=== PATIENT | female | born 1980 | race Caucasian/White ===

== ENCOUNTER → 2020-03-28 07:55 | Outpatient (CLI) | payer OTHER, SELFPAY ==
--- NOTE | ~2020-03-28 | MM_ITS ---
EXAMINATION: MM screening jo BI w jessica HISTORY: Screening mammogram TECHNIQUE: Craniocaudal and mediolateral oblique 3-D tomosynthesis images were obtained and synthetic 2-D images were generated. CAD analysis was submitted and interpreted. COMPARISON: 09/17/2019 diagnostic right mammogram and limited right breast ultrasound 03/16/2019 bilateral digital screening mammogram 03/16/2019 limited right breast ultrasound 09/18/2018 limited right breast ultrasound 03/21/2018 diagnostic right digital mammogram and limited right breast ultrasound BREAST PARENCHYMAL COMPOSITION: The breasts are extremely dense, which lowers the sensitivity of mamm ography. FINDINGS: There is no evidence of suspicious mass, calcification, or architectural distortion to sugg est malignancy in either breast. There has been no suspicious interval change. IMPRESSION: 1. No mammographic evidence of malignancy. 2. Recommend routine screening mammography in one year. BI-RADS Category 1: Negative Reviewed, dictated and finalized at location A.
== END ==
PROVIDERS: Visit Provider Nurse Practitioner
DX: Z12.31 Encounter for screening mammogram for malignant neoplasm of breast (principal)
CPT/HCPCS: 77063; 77067

== ENCOUNTER → 2021-05-27 15:53 | Outpatient (CLI) | payer OTHER, SELFPAY ==
--- NOTE | ~2021-05-27 | MM_ITS ---
EXAMINATION: MM screening jo BI w jessica HISTORY: Screening TECHNIQUE: Craniocaudal and mediolateral oblique 3-D tomosynthesis images were obtained and synthetic 2-D images were generated. CAD analysis was submitted and interpreted. COMPARISON: Comparison to multiple prior studies sequentially, with oldest reviewed study dated 03/13. BREAST PARENCHYMAL COMPOSITION: The breasts are extremely dense, which lowers the sensitivity of mamm ography FINDINGS: There is no evidence of suspicious mass, calcification, or architectural distortion to sugg est malignancy in either breast. There has been no suspicious interval change. IMPRESSION: 1. No mammographic evidence of malignancy. 2. Recommend routine screening mammography in one year. BI-RADS Category 1: Negative Reviewed, dictated and finalized at location A.
== END ==
PROVIDERS: Visit Provider Nurse Practitioner
DX: Z12.31 Encounter for screening mammogram for malignant neoplasm of breast (principal)
CPT/HCPCS: 77063; 77067

== ENCOUNTER → 2022-08-11 15:41 | Outpatient (CLI) | payer OTHER, SELFPAY ==
--- NOTE | ~2022-08-11 | MM_ITS ---
EXAMINATION: MM screening jo BI w jessica HISTORY: Screening TECHNIQUE: Craniocaudal and mediolateral oblique 3-D tomosynthesis images were obtained and synthetic 2-D images were generated. CAD analysis was submitted and interpreted. COMPARISON: Comparison to multiple prior studies sequentially, with oldest reviewed study dated 03/16. BREAST PARENCHYMAL COMPOSITION: The breasts are heterogeneously dense, which may obscure small masses . FINDINGS: There are possible masses in the upper outer quadrant of the right breast posteriorly. The left breast is stable without evidence for malignancy. IMPRESSION: 1. Possible obscured masses in the upper outer quadrant of the right breast posteriorly. 2. Additional mammographic views and possible breast ultrasound are recommended. BI-RADS Category 0: Incomplete: Needs additional imaging evaluation. Reviewed, dictated and finalized at location B. 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 Possible obscured masses in the upper outer quadrant of the right breast pos teriorly. 2. Additional mammographic views and possible breast ultrasound are recommended . BI-RADS Category 0: Incomplete: Needs additional imaging evaluation.
== END ==
PROVIDERS: PCP Family Medicine; Visit Provider Obstetrics & Gynecology Gynecology
DX: Z12.31 Encounter for screening mammogram for malignant neoplasm of breast (principal); R92.8 Other abnormal and inconclusive findings on diagnostic imaging of breast
CPT/HCPCS: 77063; 77067

== ENCOUNTER → 2022-09-13 09:13 | Outpatient (CLI) | payer OTHER, SELFPAY ==
--- NOTE | ~2022-09-13 | MMUS_ITS ---
EXAMINATION: MM diagnostic jo RT w jessica, US breast RT complete HISTORY: Possible obscured masses in upper outer quadrant of right breast posteriorly on screening ma mmogram of 08/11/2022 TECHNIQUE: Additional 3-D tomosynthesis images of the right breast were performed and synthetic 2-D i mages were generated. CAD analysis was submitted and interpreted. High resolution complete right [address] [facility] ultrasound including all 4 quadrants and subareolar area was performed. COMPARISON: 08/11/2022 bilateral screening mammogram BREAST PARENCHYMAL COMPOSITION: The breasts are heterogeneously dense, which may obscure small masses . FINDINGS: MAMMOGRAPHIC FINDINGS: No definite mass or architectural distortion is evident. The dense heterogeneous stroma may obscure m asses anywhere in the right breast. There are scattered punctate benign microcalcifications of the right breast. No malignant calcificati on is evident. No skin thickening or retraction. ULTRASOUND: There are multiple scattered circumscribed sonolucent and hypoechoic circular or parasellar lesions i n the right breast, the largest measuring up to 12 mm maximal dimension at 12:00 6 cm from the nipple . None of these has internal vascularity and none shows posterior shadowing. IMPRESSION: 1. Probable benign findings 2. 6 month diagnostic right mammogram and right breast ultrasound follow-up are recommended BI-RADS category 3, probably benign findings. Reviewed, dictated and finalized at location B. 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 Probable benign findings 2. 6 month diagnostic right mammogram and right breast ultrasound follow-up are recommended BI-RADS category 3, probably benign findings.
== END ==
PROVIDERS: PCP Family Medicine; Visit Provider Obstetrics & Gynecology Gynecology
DX: R92.8 Other abnormal and inconclusive findings on diagnostic imaging of breast (principal)
CPT/HCPCS: 76641; 77061; 77065; G0279

== ENCOUNTER → 2023-05-24 14:14 | Outpatient (CLI) | payer OTHER, SELFPAY ==
--- NOTE | ~2023-05-24 | MMUS_ITS ---
EXAMINATION: MM diagnostic jo RT w jessica, US breast RT complete HISTORY: Six-month follow-up of probable benign findings TECHNIQUE: ML, MLO and CC 3-D tomosynthesis images of the right breast were performed and synthetic 2 -D images were generated. Rotated lateral craniocaudal view. CAD analysis was submitted and interpret ed. High resolution complete right breast examination: L4 quadrants and subareolar area ultrasound wa s performed. COMPARISON: 09/13/2022 diagnostic right mammogram and right complete breast ultrasound 08/11/2022 bilateral screening mammogram BREAST PARENCHYMAL COMPOSITION: The breasts are extremely dense, which lowers the sensitivity of mamm ography. FINDINGS: MAMMOGRAPHIC FINDINGS: There is extremely dense fibroglandular stroma which may obscure masses throughout the right breast. No malignant calcification, skin thickening or retraction is detected. ULTRASOUND: No suspicious solid lesion or shadowing is detected. 12:00 5 cm from nipple: 5.4 x 6 x 4.6 mm sonolucency with through transmission posterior enhancement, consistent with simple cyst 12:00 3 cm from nipple: 5 x 6.7 x 5.4 mm sonolucency with through transmission posterior enhancement, consistent with simple cyst 12:00 1 cm from nipple: Parallel circumscribed hypoechoic lesion with through transmission posterior enhancement, measuring 3 x 6.4 x 6.2 mm, benign in appearance 12:00 3 cm from nipple: 3.7 x 2.3 x 5.2 mm parallel circumscribed sonolucent lesion, benign in appear ance 3:00 4 cm from nipple: 2.7 x 2.6 x 3.1 mm probable cyst 5:00 5 cm from nipple: 2.4 x 3.6 x 4.2 mm circumscribed sonolucency, consistent with cyst 8:00 6 cm from nipple: Parallel circumscribed hypoechoic 2.4 x 4.9 x 4.1 mm lesion without internal v ascularity or posterior shadowing, benign in appearance 9:00 8 cm from nipple: Parallel circumscribed hypoechoic lesion measuring 4 x 6.7 x 7.6 mm, with thro ugh transmission, no internal vascularity, benign in appearance 11:00 6 cm from nipple: 2.2 x 2.7 x 3 mm sonolucency consistent with small cyst 11:00 5 cm from nipple: 2.4 x 5 x 4.9 mm simple cyst 11:00 3 cm from nipple: Parallel circumscribed hypoechoic lesion measuring 3.8 x 6 x 6.1 mm, without internal vascularity or posterior shadowing, benign in appearance 11:00 3 cm from nipple: Probable 2.8 x 3.4 mm lymph node IMPRESSION: 1. Benign findings 2. Routine annual mammographic screening is recommended, with supplemental ultrasound as clinically a ppropriate BI-RADS Category 2: Benign finding(s). Reviewed, dictated and finalized at location A. IMPRESSION: 1. Benign findings 2. Routine annual mammographic screening is recommended, with supplemental ultr asound as clinically appropriate BI-RADS Category 2: Benign finding(s).
== END ==
PROVIDERS: PCP Obstetrics & Gynecology Gynecology; Visit Provider Obstetrics & Gynecology Gynecology
DX: R92.8 Other abnormal and inconclusive findings on diagnostic imaging of breast (principal)
CPT/HCPCS: 76641; 77061; 77065; G0279

== ENCOUNTER → 2023-09-06 15:28 | Outpatient (CLI) | payer OTHER, SELFPAY ==
--- NOTE | ~2023-09-06 | MM_ITS ---
EXAMINATION: MM screening jo BI w jessica HISTORY: Screening mammogram TECHNIQUE: Craniocaudal and mediolateral oblique 3-D tomosynthesis images were obtained and synthetic 2-D images were generated. CAD analysis was submitted and interpreted. COMPARISON: 05/24/2023: 1623, 08/11/2022, 05/27/2021, 03/28/2020 BREAST PARENCHYMAL COMPOSITION:Dense: The breasts are extremely dense, which lowers the sensitivity o f mammography. FINDINGS: No suspicious mass, calcification, or architectural distortion are identified in either annetta ast to suggest malignancy. There has been no suspicious interval change. IMPRESSION: No mammographic evidence of malignancy. Recommend routine screening mammography in one year. BI-RADS Category 1: Negative Reviewed, dictated and finalized at location . 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
== END ==
PROVIDERS: PCP Family Medicine; Visit Provider Nurse Practitioner
DX: Z12.31 Encounter for screening mammogram for malignant neoplasm of breast (principal)
CPT/HCPCS: 77063; 77067

== ENCOUNTER 2025-03-30 07:24 | Outpatient (CLI) | payer OTHER, SELFPAY ==
--- NOTE | ~2025-03-30 | MM_ITS ---
EXAMINATION: MM screening jo BI w jessica HISTORY: Screening TECHNIQUE: Craniocaudal and mediolateral oblique 3-D tomosynthesis images were obtained and synthetic 2-D images were generated. CAD analysis was submitted and interpreted. COMPARISON: Comparison to multiple prior studies sequentially, with oldest reviewed study dated 03/13. BREAST PARENCHYMAL COMPOSITION: The breasts are heterogeneously dense, which may obscure small masses . FINDINGS: There is no evidence of suspicious mass, calcification, or architectural distortion to sug gest malignancy in either breast. IMPRESSION: 1. No mammographic evidence of malignancy. 2. Recommend routine screening mammography in one year. BI-RADS Category 1: Negative Reviewed, dictated and finalized at location B.
== END 2025-03-30 07:25 | disposition home or self-care (01) ==
LOC: MICIMG 07:27
PROVIDERS: PCP Physician Assistant; Visit Provider Obstetrics & Gynecology Gynecology
DX: Z12.31 Encounter for screening mammogram for malignant neoplasm of breast (principal)
CPT/HCPCS: 77063; 77067